=== PATIENT | male | born 1985 | race Caucasian/White ===

== ENCOUNTER 2017-09-01 09:46 | Emergency (ER) | payer SELFPAY ==
[2017-09-01] MEDS ORDERED: Ibuprofen 800 MG TAB ONE (10:51)
== END 2017-09-01 10:55 | disposition home or self-care (01) ==
LOC: ERS 09:46
DX: J11.1 Influenza due to unidentified influenza virus with other respiratory manifestations (principal); F32.9 Major depressive disorder, single episode, unspecified; Z71.6 Tobacco abuse counseling; F17.210 Nicotine dependence, cigarettes, uncomplicated
CPT/HCPCS: 99406

== ENCOUNTER 2017-10-14 10:02 | Outpatient (CLI) | payer OTHER | END 2017-10-14 10:03 | disposition home or self-care (01) | LOC: CTENTCT 10:02 | PROVIDERS: ATTEND Otolaryngology Plastic Surgery within the Head & Neck | DX: J32.8 Other chronic sinusitis (principal) | CPT/HCPCS: 70486 ==

== ENCOUNTER 2018-09-21 12:32 | Emergency (ER) | payer OTHER ==
[2018-09-21 13:11] LABS: #Basophils 0.1 thou/uL (0.0-0.2); #Eosinphils 0.1 thou/uL (0.0-0.7); #Lymphocytes 1.7 thou/uL (1.20-3.40); #Neutrophils 10.6 thou/uL (1.40-6.50); %Basophils 0.5 % (0.0-1.0); %Eosinophils 0.8 % (0.0-10.0); %Lymphocytes 11.9 % (21.0-51.0); %Monocytes 13.7 % (0.0-10.0); %Neutrophils 73.1 % (42.0-75.0); Hemoglobin 17.5 g/dL (14.0-18.0); Mean Corpuscular HGB CONC 35.2 g/dL (32.0-36.0); Mean Corpuscular Hemoglobin 31.2 pg (27.0-31.0); Mean Corpuscular Volume 88.5 fL (78.0-98.0); Mean Platelet Volume 6.8 fL (7.4-10.4); Platelet Count 231 thou/uL (130-400); RBC Distribution Width 11.7 % (11.5-14.5); Red Blood Cell (RBC) Count 5.61 mill/uL (4.70-6.10); White Blood Cell (WBC) Count 14.5 thou/uL (4.8-10.8)
[2018-09-21 13:37] LABS: ALT (SGPT) 105 U/L (8-55); AST (SGOT) 28 U/L (5-34); Albumin 4.5 g/dL (3.5-5.0); Alkaline Phosphatase 83 U/L (40-150); Anion Gap 13 mmol/L (10-20); BUN (Urea Nitrogen) 17 mg/dL (8.9-20.6); Bilirubin, Total 3.1 mg/dL (0.2-1.2); CK (CPK) 65 U/L (30-200); Calc. Creatinine Clearance 0 mL/min (70-130); Calcium 9.7 mg/dL (7.8-10.44); Carbon Dioxide 24 mmol/L (22-29); Chloride 100 mmol/L (98-107); Estimated GFR-MDRD 61; Globulin 3.4 g/dL (2.4-3.5); Glucose 100 mg/dL (70-105); Lipase 19 U/L (8-78); Potassium 3.4 mmol/L (3.5-5.1); Protein, Total 7.9 g/dL (6.0-8.3); Sodium 134 mmol/L (136-145)
[2018-09-21 13:58] LABS: Bilirubin Negative (Negative); Blood, Urine Large (Negative); Clarity CLOUDY (Clear); Glucose, Urine (Dipstick) 250 mg/dL (Negative); Leukocyte Large (Negative); Nitrite Positive (Negative); Protein, Urine (Dipstick) 30 mg/dL (Neg-Trace); Specific Gravity, Urine 1.024 (1.002-1.036)
[2018-09-21 14:00] LABS: Bacteria/HPF 4+ HPF (None Seen); Hyaline Casts/LPF 0-3 HYALINE CAST LPF (0-3 Hyaline); Pathc Cast-AUWi Flag 0.72 (0-2.49); RBC/HPF 21-50 HPF (0-3); Squamous Epithelial None Seen HPF (0-3)
--- NOTE | 2018-09-21 14:08 | RAD ---
PA CHEST: HISTORY: Chest pain. FINDINGS: The lung mix are clear. The heart and mediastinum appear normal. The vasculature is normal. IMPRESSION: No acute findings. POS: [facility]
[2018-09-21] MEDS ORDERED: Acetaminophen 500 MG TAB ONE (14:42)
[2018-09-21] MEDS ORDERED: cefTRIAXone\\ROCEPHIN 1 GM VIAL ONE (14:42)
[2018-09-21] MEDS ORDERED: Sulfameth/Trimethoprim DS 800-160mg TAB ONE (14:42)
== END 2018-09-21 15:56 | disposition home or self-care (01) ==
LOC: ERS 12:32
DX: N12 Tubulo-interstitial nephritis, not specified as acute or chronic (principal); F32.9 Major depressive disorder, single episode, unspecified; F17.210 Nicotine dependence, cigarettes, uncomplicated
CPT/HCPCS: 36415; 71045; 80053; 81003; 81015; 82550; 83690; 84484; 85025; 93005; 96365; J0696

== ENCOUNTER 2019-04-13 07:57 | Outpatient (CLI) | payer OTHER ==
--- NOTE | 2019-04-13 08:21 | ULT ---
Sonogram right upper quadrant HISTORY: Abnormal liver function tests. FINDINGS: Gallbladder has a normal appearance. Common duct is 0.3 cm. Liver is diffusely echogenic without focal mass or intrahepatic biliary dilatation. No free fluid. IMPRESSION: No evidence of gallstones or biliary obstruction. Hepatic steatosis.
== END 2019-04-13 07:58 | disposition home or self-care (01) ==
LOC: BICULT 07:57
PROVIDERS: ATTEND Family Medicine
DX: R74.8 Abnormal levels of other serum enzymes (principal); K76.0 Fatty (change of) liver, not elsewhere classified
CPT/HCPCS: 76705

== ENCOUNTER 2019-07-05 07:18 | Day surgery (SDC) | payer OTHER ==
[2019-07-04 14:51] VITALS: BMI 28.3
[2019-07-05] MEDS ORDERED: Midazolam HCl 2 mg/2 ml Vial ONE (08:07)
[2019-07-05] MEDS ORDERED: Oxymetazoline HCl 0.05% ( 15 ML ) ONE (08:07)
[2019-07-05] MEDS ORDERED: Fentanyl 100 MCG/2 ML VIAL ONE ×3 (09:44→12:42)
[2019-07-05] MEDS ORDERED: Lidocaine 1% w/Epinephrine 1:100K 20 ML VIAL ONE (09:47)
[2019-07-05] MEDS ORDERED: Ferric Subsulfate (ASTRINGYN) 8 ML VIAL ONE (09:47)
[2019-07-05] MEDS ORDERED: hydrALAZINE 20 MG/ML VIAL ONE (12:18)
[2019-07-05] MEDS ORDERED: Labetalol HCl 100 MG/20 ML VIAL ONE (12:47)
[2019-07-05] MEDS ORDERED: Morphine 2 MG/ML SYRINGE ONE (13:44)
[2019-07-05] MEDS ORDERED: Hydrocodone-Acetamin 15 ML UDCUP ONE (14:19)
[2019-07-05] MEDS ORDERED: PROPOFOL 200 MG/20 ML VIAL ONE (16:06)
[2019-07-05] MEDS ORDERED: Ondansetron PF 4 MG/2 ML Vial ONE (16:06)
[2019-07-05] MEDS ORDERED: Glycopyrrolate 0.2 MG/ML 5 ML SYRINGE ONE (16:06)
[2019-07-05] MEDS ORDERED: Lidocaine 1% PF 5 ML VIAL ONE (16:06)
[2019-07-05] MEDS ORDERED: Dexamethasone 20 MG/5 ML VIAL ONE (16:06)
[2019-07-05] MEDS ORDERED: Rocuronium Bromide 10 MG/ML (10ML VIAL) ONE (16:06)
--- NOTE | 2019-07-11 09:46 | OP ---
DATE OF PROCEDURE: 07/05/2019 PREOPERATIVE DIAGNOSES: 1. Chronic rhinosinusitis. 2. Nasal septal deviation. 3. Bilateral inferior turbinate hypertrophy. 4. Nasal polyposis. 5. Chronic adenotonsillitis. 6. Adenotonsillar hypertrophy. POSTOPERATIVE DIAGNOSES: 1. Chronic rhinosinusitis. 2. Nasal septal deviation. 3. Bilateral inferior turbinate hypertrophy. 4. Nasal polyposis. 5. Chronic adenotonsillitis. 6. Adenotonsillar hypertrophy. PROCEDURES PERFORMED: 1. Bilateral endoscopic sinus surgery, total ethmoidectomies. 2. Bilateral endoscopic sinus surgery, maxillary antrostomies. 3. Bilateral endoscopic sinus surgery, frontal sinusotomies. 4. Bilateral endoscopic sinus surgery, sphenoidotomies. 5. Nasal septoplasty. 6. Bilateral inferior turbinate submucosal resection. 7. Tonsillectomy and adenoidectomy. ESTIMATED BLOOD LOSS: 50 mL. COMPLICATIONS: None. ANESTHESIA: GETA. PROCEDURE IN DETAIL: TONSILLECTOMY AND ADENOIDECTOMY: After consent was obtained, the patient was identified, brought to the operating room, and placed on the operating table in the supine position. General endotracheal anesthesia and intravenous access were obtained and we proceeded with positioning the patient for oropharyngeal surgery. Oropharyngeal exposure was obtained with a Marry-Alexy mouth gag after a head drape was placed and secured with a towel clip. The Marry-Alxey mouth gag was then suspended from the Naranjo tray and palatal elevation was achieved with a red rubber catheter. The right tonsil was addressed first. We used a curved Allis to grasp the tonsil and retract it medially as an anterior pillar incision was made. The retrotonsillar fascial plane was then established and blunt dissection was performed with the suction cautery. Blood vessels were anticipated, identified, and cauterized as they were encountered. Ultimately, dissection was carried to the posterior tonsillar pillar mucosa which was incised hemostatically, as well as the base of tongue connection. The tonsil was then passed off as a specimen and bleeding points within the tonsillar bed were cauterized under direct visualization. We subsequently turned our attention to the contralateral side, where using a similar technique, a near identical procedure was performed. Again, the tonsil was grasped and retracted medially with a curved Allis. The retrotonsillar fascial plane was established and while the anterior pillar was retracted medially. The hemostatic blunt dissection of the tonsil with a suction cautery was performed with blood vessels anticipated, identified, and cauterized as they were encountered. Again, dissection continued to the base of tongue and posterior tonsillar pillar mucosa which was incised in a hemostatic fashion. The tonsillar beds were then carefully inspected and bleeding points were identified and cauterized with a suction cautery. After this portion of the procedure, hemostasis was completely obtained. Under direct mirror visualization, we visualized the adenoid pad. Under direct mirror visualization, we removed the bulk of the adenoid tissue with the adenoid curette. We then packed the nasopharynx for an appropriate period of time with [id number] tonsillar sponges. After a period of observation, we removed the pack. Under indirect mirror visualization, we obtained hemostasis and vaporization of residual adenoid tissue with electrocautery. The patient's oral cavity was copiously irrigated with iced saline and subsequently suctioned. After completion of the procedure, the nasal cavity and oropharynx were irrigated and suctioned as were the gastric contents. The patient was then awakened and transferred to the recovery room where the patient remained in stable condition prior to discharge to Day Stay. Note was following this please dictate my standard nasal septoplasty and bilateral inferior turbinate submucosal resection note following this please dictate my standard bilateral endoscopic sinus surgery, total ethmoidectomy and maxillary antrostomy note. Following this, the 0-degree endoscope was advanced through the previous ethmoidectomies and the superior turbinate was identified. The attachment of the superior turbinates to the posterior nasal wall was used as a landmark in a puncture into the sphenoid sinus was made just medial and inferior to this area with a Jameson tip suction. Following this, the 0-degree microdebrider was then inserted into the sphenoid ostium for the sphenoidotomy and was widened medially and inferiorly. This was performed bilaterally. Following this, a 45-degree endoscope and the 40-degree microdebrider blade were used to further open the anterior ethmoidal cells and frontal recess cells. Following this, the frontal sinus ostia was identified and was widened bilaterally using the curved microdebrider. Following this, the nasal cavity was irrigated. Propel nasal steroid stents were placed in the frontal sinus ostia and the maxillary sinus ostia bilaterally nasal pore packing was placed into the middle meatus. Aj splints were placed and secured. The patient tolerated procedure well. NASAL SEPTOPLASTY AND BILATERAL INFERIOR TURBINATE SUBMUCOSAL RESECTION: The patient was taken to the operating room and GETA was obtained by the anesthesia staff. Afrin pledgets were then placed into the nasal cavity bilaterally. The patient was placed into the beach chair positon and was prepped and draped for standard nasal surgical procedures. Following this, the Afrin pledgets were removed and 1% lidocaine with 1:100,000 epinephrine was injected via a 27 gauge needle into the nasal septum, the inferior turbinate and the middle turbinate bilaterally. Following this, a Greenbriar incision was made on the left nasal septum and mucoperichondrial flaps were elevated. A strong 2 cm caudal and dorsal cartilage strut was left intact as the deviated portions of the nasal cartilage and bone was removed. A 4-0 gut stitch was used to reapproximate the nasal mucoperichondrial flaps as well as close the Anuel incision. Following this, the submucosal microdebrider was used to puncture and submucosally resect the anterior- inferior portions of the hypertrophic inferior turbinates. The inferior turbinates were laterally outfractured with a Eudora elevator. BILATERAL ENDOSCOPIC SINUS SURGERY: BILATERAL TOTAL ETHMOIDECTOMIES, AND MAXILLARY ANTROSTOMIES: Following this, 1% lidocaine with 1:100,000 epinephrine were injected into the middle turbinates and lateral nasal wall bilaterally. Following this, the 0-degree endoscope was used to visualize the middle turbinate and the middle turbinate was medially fractured using a Eudora elevator. Following this, the uncinate process was identified and was examined. The uncinate process was noted to be inflamed and laterally displaced bilaterally. Following this, a ball-ended probe was used to anteriorly fracture the uncinate process bilaterally. Following this, the 0-degree microdebrider and the up-biting Blakesley forceps were used to remove the uncinate process bilaterally. Following this, the natural maxillary sinus ostia was identified with the 0-degree endoscope and the ball-ended probe. The natural maxillary ostia was then widened using a 40-degree microdebrider and the straight Blakesley forceps bilaterally. Following this, the ethmoidal bulla was identified bilaterally. A 0-degree microdebrider was used to puncture the ethmoidal bulla on its medial and inferior aspect bilaterally. Following this, the 0-degree microdebrider and the up-biting Blakesley forceps were used to remove the ethmoidal bulla. Following this, the grand lamella was identified posterior to this area and was punctured using the 0-degree microdebrider bilaterally. Following this, the ethmoidal cells were opened from the posterior to the anterior using the 0-degree microdebrider, the 40-degree microdebrider and the up-biting Blakesley forceps bilaterally. Following this, the 45-degree endoscope and the 40-degree microdebrider blade were used to further remove the anterior ethmoidal cells to the level of the frontal sinus recess bilaterally. Job ID: [id number]
== END 2019-07-05 15:10 | disposition home or self-care (01) ==
LOC: EEVIPCON 07:18 → SDC 07:18
PROVIDERS: ATTEND Otolaryngology Plastic Surgery within the Head & Neck
PROC: 099W8ZZ Drainage of Right Sphenoid Sinus, Via Natural or Artificial Opening Endoscopic (ICD-10-PCS; principal; 2019-07-05)
PROC: 099Q8ZZ Drainage of Right Maxillary Sinus, Via Natural or Artificial Opening Endoscopic (ICD-10-PCS; principal; 2019-07-05)
PROC: 0CTPXZZ Resection of Tonsils, External Approach (ICD-10-PCS; principal; 2019-07-05)
PROC: 099S8ZZ Drainage of Right Frontal Sinus, Via Natural or Artificial Opening Endoscopic (ICD-10-PCS; principal; 2019-07-05)
PROC: 0CTQXZZ Resection of Adenoids, External Approach (ICD-10-PCS; principal; 2019-07-05)
PROC: 09TV8ZZ Resection of Left Ethmoid Sinus, Via Natural or Artificial Opening Endoscopic (ICD-10-PCS; principal; 2019-07-05)
PROC: 099T8ZZ Drainage of Left Frontal Sinus, Via Natural or Artificial Opening Endoscopic (ICD-10-PCS; principal; 2019-07-05)
PROC: 09TU8ZZ Resection of Right Ethmoid Sinus, Via Natural or Artificial Opening Endoscopic (ICD-10-PCS; principal; 2019-07-05)
PROC: 09TL0ZZ Resection of Nasal Turbinate, Open Approach (ICD-10-PCS; principal; 2019-07-05)
PROC: 09SM0ZZ Reposition Nasal Septum, Open Approach (ICD-10-PCS; principal; 2019-07-05)
PROC: 099R8ZZ Drainage of Left Maxillary Sinus, Via Natural or Artificial Opening Endoscopic (ICD-10-PCS; principal; 2019-07-05)
PROC: 099X8ZZ Drainage of Left Sphenoid Sinus, Via Natural or Artificial Opening Endoscopic (ICD-10-PCS; principal; 2019-07-05)
DX: J32.9 Chronic sinusitis, unspecified (principal); J34.2 Deviated nasal septum; J34.3 Hypertrophy of nasal turbinates; J33.9 Nasal polyp, unspecified; J35.03 Chronic tonsillitis and adenoiditis; G89.29 Other chronic pain; F17.210 Nicotine dependence, cigarettes, uncomplicated; G47.33 Obstructive sleep apnea (adult) (pediatric); K13.79 Other lesions of oral mucosa; Z79.899 Other long term (current) drug therapy
CPT/HCPCS: 88304; J0360; J1100; J2001; J2250; J2270; J2405; J2704; J3010

== ENCOUNTER 2020-05-09 11:49 | Outpatient (CLI) | payer OTHER ==
--- NOTE | 2020-05-09 12:29 | RAD ---
LUMBAR SPINE RADIOGRAPHS 6 VIEWS: Date: 05/09/2020 PROVIDED CLINICAL HISTORY: Lumbar radiculopathy. FINDINGS: Six non-rib bearing lumbar-type vertebral bodies are demonstrated. Lumbar alignment appears normal. T here is no evidence for abnormal translational motion with flexion and extension. Utilizing the above nomenclature, bilateral L6 pars defects are suspected on the basis of the oblique views. Vertebral b cata heights and intervertebral disc space heights appear preserved. Pedicles appear intact. SI joints appear unremarkable. IMPRESSION: Bilateral L6 pars defects are suspected without associated listhesis. POS: [facility]
== END 2020-05-09 11:50 | disposition home or self-care (01) ==
LOC: BICRAD 11:49
PROVIDERS: ATTEND Chiropractor
DX: M54.16 Radiculopathy, lumbar region (principal); M54.5 Low back pain; G89.29 Other chronic pain
CPT/HCPCS: 72100

== ENCOUNTER 2020-06-05 10:37 | Outpatient (CLI) | payer OTHER ==
--- NOTE | 2020-06-05 11:26 | MRI ---
MR the lumbar spine without contrast: 06/05/2020 History: Left-sided radiculopathy, pain COMPARISON: Lumbar spine radiographs 05/09/2020 TECHNIQUE: Multiplanar multisequence MR images were obtained of lumbar spine without IV contrast FINDINGS: On the basis of 6 lumbar type vertebral bodies, conus medullaris terminates at theL1 level. Sagittal STIR imaging demonstrates no focal area of osseous marrow edema. T12-L1:Unremarkable L1-2:Unremarkable L2-3:Unremarkable L3-4:Unremarkable L4-5:Unremarkable L5-L6: Tiny central disc protrusion with no associated central canal or neural foraminal stenosis L6-S1: Bilateral pars defects are suspected. There is mild disc space narrowing. Anterolisthesis is n oted measuring in the 7 mm range. No significant central canal stenosis. Mild left neural foraminal stenosis. No significant right neural foraminal. Image retroperitoneal structures demonstrateno acute findings. IMPRESSION: On the basis of 6 lumbar type vertebral bodies, bilateral L6 pars defects are suspected with mild ant erolisthesis at L6 S1 and mild left-sided neural foraminal stenosis.
== END 2020-06-05 10:38 | disposition home or self-care (01) ==
LOC: TBSIIMAG 10:37
PROVIDERS: ATTEND Neurological Surgery
DX: M54.16 Radiculopathy, lumbar region (principal); M43.06 Spondylolysis, lumbar region
CPT/HCPCS: 72148

== ENCOUNTER 2020-06-15 23:05 | Inpatient (IN) | payer OTHER ==
[2020-06-15] MEDS ORDERED: Fentanyl 100 MCG/2 ML VIAL ONE ×2 (23:16→23:50)
[2020-06-15 23:32] LABS: #Basophils 0.1 thou/uL (0.0-0.2); #Eosinphils 0.2 thou/uL (0.0-0.7); #Lymphocytes 1.6 thou/uL (1.20-3.40); #Neutrophils 10.3 thou/uL (1.40-6.50); %Basophils 0.7 % (0.0-1.0); %Eosinophils 1.7 % (0.0-10.0); %Monocytes 7.4 % (0.0-10.0); %Neutrophils 78.3 % (42.0-75.0); Hemoglobin 15.8 g/dL (14.0-18.0); Mean Corpuscular HGB CONC 35.2 g/dL (32.0-36.0); Mean Corpuscular Hemoglobin 31.5 pg (27.0-31.0); Mean Corpuscular Volume 89.4 fL (78.0-98.0); Mean Platelet Volume 6.9 fL (7.4-10.4); Platelet Count 252 thou/uL (130-400); RBC Distribution Width 11.8 % (11.5-14.5); Red Blood Cell (RBC) Count 5.02 mill/uL (4.70-6.10); White Blood Cell (WBC) Count 13.2 thou/uL (4.8-10.8)
[2020-06-15 23:52] LABS: ALT (SGPT) 79 U/L (8-55); AST (SGOT) 37 U/L (5-34); Albumin 4.2 g/dL (3.5-5.0); Alkaline Phosphatase 73 U/L (40-110); Anion Gap 16 mmol/L (10-20); BUN (Urea Nitrogen) 17 mg/dL (8.9-20.6); Bilirubin, Total 1.1 mg/dL (0.2-1.2); Calc. Creatinine Clearance 0 mL/min (70-130); Calcium 8.5 mg/dL (7.8-10.44); Carbon Dioxide 19 mmol/L (22-29); Chloride 104 mmol/L (98-107); Estimated GFR-MDRD 79; Globulin 2.5 g/dL (2.4-3.5); Glucose 82 mg/dL (70-105); Potassium 3.4 mmol/L (3.5-5.1); Protein, Total 6.7 g/dL (6.0-8.3); Sodium 136 mmol/L (136-145)
[2020-06-16] MEDS ORDERED: Promethazine HCl 25 MG/ML VIAL IM PRN ×2 (00:28→12:17)
[2020-06-16] MEDS ORDERED: Dextrose 50% Abboject 50 ML SYRINGE SLOW IVP PRN (00:28)
[2020-06-16] MEDS ORDERED: Dextrose 5% in Water 1,000 ML IV PRN (00:28)
[2020-06-16] MEDS ORDERED: Ondansetron ODT 4 MG TAB PO PRN (00:28)
[2020-06-16] MEDS ORDERED: Ondansetron PF 4 MG/2 ML Vial IVP PRN (00:28)
--- NOTE | 2020-06-16 01:00 | HP ---
Trauma activation, not applicable. HISTORY OF PRESENT ILLNESS: This is a 35-year-old male brought to [facility] ER via EMS status post fall. Per patient, he was walking [facility] after tracking a peoples that he shot while hunting when he stepped in a hole and twisted his leg. Patient had immediate onset of right lower extremity pain and was unable to ambulate. Further evaluation in the emergency room revealed a comminuted tib-fib fracture. Orthopedic Surgery was notified and Trauma Service was asked to admit. Upon my evaluation, the patient is post-conscious sedation for reduction and splinting. The splint is in place. Current pain is a 2/10. Pain relieved with pain medication and worsened with movement. Patient reports he was in his normal state of health prior to his accident. ALLERGIES: NONE. HOME MEDICATIONS: Denies. SURGICAL HISTORY: Sinus surgery. SOCIAL HISTORY: Lives with spouse. He is an enterprise systems administrator. Endorses occasional alcohol use and daily tobacco use, snuff. Patient denies any illicit drug use. FAMILY HISTORY: Significant for father with stroke, CAD, hypertension and mother with hypertension. REVIEW OF SYSTEMS: Remainder of a 10-point review of systems was performed and negative, except as indicated in the HPI. PHYSICAL EXAMINATION: VITAL SIGNS: On evaluation include heart rate 95, blood pressure 139/96, O2 saturation 98% on 2 L nasal cannula, and respiratory rate of 18. Patient is afebrile. GENERAL: Resting in bed. No acute distress. HEENT: Head is normocephalic, atraumatic. Eyes, pupils are PERRL. Extraocular movements are intact. NECK: Supple. Trachea is midline. There is no midline tenderness to palpation. CHEST: Atraumatic. Nontender to palpation. Normal breathing. Symmetric rise. LUNGS: Clear to auscultation bilaterally. CARDIOVASCULAR: Regular rate and rhythm. No obvious murmurs, rubs, or gallops. GI: Abdomen is soft, nontender, and nondistended. Bowel sounds are positive. PELVIS: Stable. BACK EXAM: Within normal limits for patient. MUSCULOSKELETAL: Bilateral upper extremities within normal limits. Left lower extremity within normal limits. Right lower extremity has been splinted and he is neurovascularly intact at the side of his injury. NEUROLOGIC: GCS is 15. No focal deficit is noted. LABORATORY FINDINGS: WBC 13.2, hemoglobin 15.8, hematocrit 44.9, and platelet count 252. Sodium 136, potassium 3.4, chloride 104, carbon dioxide 19, BUN 17, creatinine 1.06, glucose 82, AST 37, and ALT 79. RADIOGRAPHIC FINDINGS: Chest x-ray, pending Radiology read, no acute cardiopulmonary abnormalities. X-ray of the tib-fib pending Radiology read demonstrates a comminuted tib-fib fractures. ASSESSMENT: 1. Status post mechanical fall. 2. Acute traumatic pain. 3. Fracture-dislocation of the tibia and fibula. PLAN: Orthopedic Surgery has been notified and plan for operative intervention in the morning. Patient should be n.p.o. Gentle IV fluid for hydration. Pain management with p.o. and IV medications. Postoperative PT and OT, supportive care. Incentive spirometry while awake. Pharmacological DVT prophylaxis when appropriate. Plan for admission was discussed with patient at bedside and all questions were answered prior to this dictation. Trauma attending has been notified of admission. Of note, the patient's primary care provider is Dr. Chin. Job ID: [id number]
[2020-06-16] MEDS: Lactated Ringer's 1,000 ML IV SCH ×3 (01:37→23:00)
[2020-06-16] MEDS: Morphine 2 MG/ML VIAL SLOW IVP PRN ×4 (01:41→22:31)
[2020-06-16] MEDS: Acetaminophen 500 MG TAB PO SCH ×4 (01:59→20:33)
[2020-06-16] MEDS: traMADol HCl 50 MG TAB PO SCH ×4 (01:59→20:34)
[2020-06-16] MEDS: Ketorolac Tromethamine 30 MG/ML VIAL IVP SCH ×4 (02:01→20:30)
[2020-06-16 03:14] VITALS: BMI 27.6
[2020-06-16] MEDS ORDERED: Ketorolac Tromethamine 30 MG/ML VIAL IVP SCH (06:00)
[2020-06-16] MEDS ORDERED: traMADol HCl 50 MG TAB PO SCH (06:00)
[2020-06-16] MEDS ORDERED: Acetaminophen 500 MG TAB PO SCH (06:00)
--- NOTE | 2020-06-16 08:07 | RAD ---
RIGHT TIBIA FIBULA: FINDINGS: Comminuted displaced fractures involving the distal diaphysis of both tibia and fibula. Both fractur es are predominantly obliquely oriented. Both show mild comminution. Both fractures show posterior displacement of the distal fragments. IMPRESSION: Displaced fractures distal diaphysis right tibia and fibula. POS: [facility]
--- NOTE | 2020-06-16 08:08 | RAD ---
PORTABLE CHEST: HISTORY: Injury. Preop. FINDINGS: Lung mix clear. Heart and mediastinum appear normal. IMPRESSION: Negative chest. POS: [facility]
[2020-06-16] MEDS ORDERED: CEFAZOLIN 2 GM in Premix Bag 1 BAG IVPB SCH (08:15)
[2020-06-16] MEDS ORDERED: Ondansetron PF 4 MG/2 ML Vial ONE (10:00)
[2020-06-16] MEDS ORDERED: Dexamethasone 20 MG/5 ML VIAL ONE (10:00)
[2020-06-16] MEDS ORDERED: Glycopyrrolate 0.2 MG/ML 5 ML SYRINGE ONE (10:00)
[2020-06-16] MEDS ORDERED: Ketorolac Tromethamine 30 MG/ML VIAL ONE (10:00)
[2020-06-16] MEDS ORDERED: Rocuronium Bromide 10 MG/ML (10ML VIAL) ONE (10:00)
[2020-06-16] MEDS ORDERED: diphenhydrAMINE 50 MG/ML VIAL ONE (10:00)
[2020-06-16] MEDS ORDERED: PROPOFOL 200 MG/20 ML VIAL ONE (10:00)
[2020-06-16] MEDS ORDERED: Fentanyl 100 MCG/2 ML VIAL ONE (10:01)
[2020-06-16] MEDS ORDERED: Midazolam HCl 2 mg/2 ml Vial ONE (10:01)
[2020-06-16] MEDS: Famotidine 20 MG TAB PO SCH ×2 (10:03→20:34)
[2020-06-16] MEDS: Senokot S 8.6-50 MG TAB PO SCH ×2 (10:03→20:37)
[2020-06-16] MEDS: Polyethylene Glycol 3350 17 GM Packet PO SCH (10:03)
--- NOTE | 2020-06-16 10:24 | CON ---
DATE OF CONSULTATION: Dictated by Ghanshyam Gastelum PA-C, as a scribe for Dr. Gatito Sampson. HISTORY OF PRESENT ILLNESS: We were asked by Trauma in the ER to see the patient. The patient was deer hunting, got a peoples, he was going to track the blood trail, slipped off a 1-1/2 foot ledge, twisting his leg and breaking his right tibia. He had significant pain, was not able to continue hunting. His friends brought him to the ER and was found after x-rays to have a tibial fracture. No other injuries. Right now, he is currently resting in room #3308. He does have a splint on, but his leg had not been straightened by the ER. He has no numbness or tingling in his foot fortunately and has good pulses. PAST MEDICAL HISTORY: He has had some sinus issues. FAMILY HISTORY: Positive for cardiac issues. He was actually scheduled to undergo a stress test tomorrow. ALLERGIES: NONE. MEDICATIONS: None. PAST SURGICAL HISTORY: Sinus surgery. SOCIAL HISTORY: Lives with girlfriend. Has rare, occasional alcohol use. Does use tobacco about a pack a day. No drug use. REVIEW OF SYSTEMS: Right lower extremity pain, currently splinted, but his lower extremity is outward rotated, but no numbness or tingling. Rest of discussed review of systems is negative. PHYSICAL EXAMINATION: GENERAL: Well-nourished male, resting in the bed in room #3308, in no acute distress. Speech clear. Affect pleasant. Answered questions appropriately. He is alert and oriented x3. HEENT: Scalp atraumatic. Face symmetric. Tongue midline. NECK: Supple. Trachea midline. EXTREMITIES: Upper extremities, equal size, shape, symmetry. Normal bulk and tone. Strengths, movements, sensations, pulses are all intact. He has an IV unfortunately in the left antecubital. I asked the patient if he would like that moved because he keeps bending his arm and the IV monitor goes off and he is okay with it staying. Respirations 16, in no acute distress. PELVIS: No pain with rocking lower extremities. Left lower extremity normal exam. Right lower extremity is straight until you get to the knee and then his tibia is outward rotated. Fortunately, he has no numbness or tingling due to the outward rotation. He is able to wiggle his toes bilaterally. DP and PT pulses are intact equally. PT pulse on the left is palpable. ASSESSMENT: Fall with ensuing right tibial fracture. PLAN: I spoke with the patient. Once we get him in the OR, we will get him prepped, we will get the leg straightened out, and insert a tibial nail. The procedure risks, benefits, complications have all been discussed and he is amenable to go forth with surgery. His questions and concerns have been addressed. He has been cleared by Medical Trauma Service. Job ID: [id number] [facility]
--- NOTE | 2020-06-16 11:45 | PRG ---
DATE OF SERVICE: 06/16/2020 SUBJECTIVE: The patient remains on the surgical floor, resting comfortably in no acute distress. The patient arouses easily. The patient reports the pain is controlled unless he moves. The patient had no overnight events. The patient remains n.p.o. after midnight with maintenance IV fluids. OBJECTIVE: VITAL SIGNS: Temperature 97.7, pulse 64, respirations 16, blood pressure 137/81, and SpO2 of 97% on room air. GENERAL: young male, resting comfortably in no acute distress. HEENT: Head is atraumatic, normocephalic. Mucous membranes moist. RESPIRATORY: Equal chest rise and fall, no respiratory distress. CARDIAC: Regular rate, regular rhythm. EXTREMITIES: Moves all extremities, neurovascularly intact x4, right lower extremity in a splint. NEUROLOGIC: GCS 15. No focal deficits. LABORATORY DATA: No new labs to evaluate. IMPRESSION: 1. Status post mechanical fall. 2. Acute traumatic pain. 3. Fracture dislocation of the right tibia and fibula. PLAN: Continue n.p.o. and maintenance IV fluids. Orthopedic Surgery plans to take the patient to the OR today for repair. Pain control and supportive care. PT and OT to evaluate and treat postop. Regular diet postop. The plan was discussed with the patient who agrees. Job ID: [id number]
[2020-06-16] MEDS ORDERED: PROPOFOL 0 ML ONE (12:14)
[2020-06-16] MEDS ORDERED: PACU-Morphine 4MG/ML VIAL SLOW IVP PRN (12:17)
[2020-06-16] MEDS ORDERED: Ondansetron HCl/PF 4 MG/2 ML Vial IVP PRN (12:17)
[2020-06-16] MEDS ORDERED: HYDROmorphone 2 MG/ML VIAL SLOW IVP PRN (12:17)
[2020-06-16] MEDS ORDERED: Promethazine HCl 25 MG/ML VIAL SLOW IVP PRN (12:17)
--- NOTE | 2020-06-16 13:24 | RAD ---
RIGHT TIBIA FIBULA 2 VIEWS: HISTORY: Intraoperative films. FINDINGS: This shows intramedullary rusty placement stabilizing a distal tibial fracture. IMPRESSION: Intramedullary rusty placement. POS: [facility]
[2020-06-16] MEDS: CEFAZOLIN 2 GM in Premix Bag 1 BAG IVPB SCH ×2 (14:04→20:41)
--- NOTE | 2020-06-16 18:32 | OP ---
DATE OF PROCEDURE: 06/16/2020 PROCEDURE PERFORMED: Right tibia intramedullary nail. PREOPERATIVE DIAGNOSIS: Right tibia and fibular fracture. POSTOPERATIVE DIAGNOSIS: Right tibia and fibular fracture. COMPLICATIONS: None. ESTIMATED BLOOD LOSS: 100 mL. QUALITY REVIEWER: Ghanshyam Gastelum. IMPLANTS: Synthes 375 mm x 10 mm tibial nail with Crosslock screws. INDICATIONS: Gatito is a 35-year-old male, who fractured his right tibia and fibula. He has been indicated for intramedullary nail fixation to restore anatomic alignment and promote healing. Risks have been reviewed with the patient and he wants to proceed with surgery. DESCRIPTION OF PROCEDURE: Gatito was identified in the preoperative holding area. His correct extremity was marked. He was carried to the operating room. He was positioned supine. General anesthesia was induced. A multidisciplinary time-out was performed. The right lower extremity was prepped and draped in sterile fashion. We began the procedure with a small incision over the knee. We dissected down through the subcutaneous tissues to the medial parapatellar tendon. We made a small arthrotomy. We then bluntly palpated the proximal tibial plateau. Next, we inserted a guide pin using intraoperative x-ray. We overdrilled the guide pin. We then placed our ball-tipped guidewire from proximal to distal through the tibia and across the fracture site, it was seated distally. At this point, we measured the guide length. We then over-reamed the guide 10 from an 8.5 reamer to a size 11 reamer. We then inserted a 375 mm tibial nail, which was size 10. This was seated appropriately using intraoperative x- ray. We checked that we had appropriate alignment and reduction. We then placed 2 proximal Crosslock screws followed by two distal Crosslock screws. We thoroughly irrigated all wounds and copiously lavaged. We then placed a sterile dressing. The patient was taken to the recovery room in good condition. The social media assistant participated in patient positioning, prepping and drapping the limb. Surgical approach and exposure was provided by the social media assistant by use of retractors. The social media assistant helped in reduction of the bone with traction and other maneuvers. The social media assistant also was involved in closing of the wound and dressing placement. Job ID: [id number] [facility]
[2020-06-17] MEDS: Ketorolac Tromethamine 30 MG/ML VIAL IVP SCH (01:57)
[2020-06-17] MEDS: Acetaminophen 500 MG TAB PO SCH ×3 (01:58→15:00)
[2020-06-17] MEDS: traMADol HCl 50 MG TAB PO SCH ×3 (01:58→15:00)
[2020-06-17] MEDS: Morphine 2 MG/ML VIAL SLOW IVP PRN (03:39)
[2020-06-17 05:11] LABS: Hemoglobin 12.4 g/dL (14.0-18.0); Mean Corpuscular HGB CONC 29.6 g/dL (32.0-36.0); Mean Corpuscular Hemoglobin 26.9 pg (27.0-31.0); Mean Corpuscular Volume 90.7 fL (78.0-98.0); Mean Platelet Volume 7.5 fL (7.4-10.4); Platelet Count 256 thou/uL (130-400); RBC Distribution Width 11.6 % (11.5-14.5); Red Blood Cell (RBC) Count 4.63 mill/uL (4.70-6.10); White Blood Cell (WBC) Count 13.2 thou/uL (4.8-10.8)
[2020-06-17 05:28] LABS: Anion Gap 10 mmol/L (10-20); BUN (Urea Nitrogen) 15 mg/dL (8.9-20.6); Calc. Creatinine Clearance 137 mL/min (70-130); Calcium 8.6 mg/dL (7.8-10.44); Carbon Dioxide 27 mmol/L (22-29); Chloride 103 mmol/L (98-107); Estimated GFR-MDRD 85; Glucose 134 mg/dL (70-105); Magnesium 2.1 mg/dL (1.6-2.6); Phosphorus 3.5 mg/dL (2.3-4.7); Potassium 4.1 mmol/L (3.5-5.1); Sodium 136 mmol/L (136-145)
[2020-06-17] MEDS: Lactated Ringer's 1,000 ML IV SCH (05:51)
[2020-06-17] MEDS ORDERED: Cyclobenzaprine 10 MG TAB PO PRN (07:19)
[2020-06-17] MEDS ORDERED: PHOS-NAK 1 PKT PACK PO SCH (07:30)
[2020-06-17] MEDS: Famotidine 20 MG TAB PO SCH (08:24)
[2020-06-17] MEDS: Senokot S 8.6-50 MG TAB PO SCH (08:24)
[2020-06-17] MEDS: Polyethylene Glycol 3350 17 GM Packet PO SCH ×2 (08:24→08:34)
--- NOTE | 2020-06-17 13:36 | DIS ---
DATE OF ADMISSION: 06/16/2020 DATE OF DISCHARGE: 06/17/2020 ADMISSION DIAGNOSES: Ground level fall and right tib-fib fracture. DISCHARGE DIAGNOSES: Ground level fall and right tib-fib fracture. CONSULTING PHYSICIAN: Dr. Sampson of Orthopedic Surgery. PROCEDURES: The patient went to the OR on June 16, 2020, and had an IM nail to the right tib-fib. HOSPITAL COURSE: The patient is a 35-year-old male, who presented to the emergency department after a ground level fall. The patient was hunting and he stepped into a hole, subsequently causing him to fall. He had a right tib-fib fracture. He was admitted to the Trauma Service and went to the OR the same day of arrival to receive IM nail of the right tib-fib. Postoperatively, he worked with physical and occupational therapy and was deemed safe to be discharged home with crutches. DISCHARGE DISPOSITION: Home. DISCHARGE CONDITION: Satisfactory. PHYSICAL EXAMINATION: VITAL SIGNS: Temperature 98, pulse 63, respirations 16, oxygen saturation 98% on room air, and blood pressure 139/91. GENERAL: Well-appearing, middle-aged male, sitting up in bed with no signs of acute distress. PULMONARY: Equal chest rise and fall. Clear breath sounds bilaterally. No signs of acute respiratory distress. CARDIAC: Regular rate and rhythm. NEUROLOGIC: GCS is 15. DISCHARGE INSTRUCTIONS: The patient will be discharged home. Activity as tolerated. Walking boot and strict toe-touch weightbearing to the right lower extremity. Regular diet. Crutches will be provided. DISCHARGE MEDICATIONS: Include: 1. Tylenol. 2. Flexeril. 3. Gabapentin. 4. Ibuprofen. 5. MiraLAX. 6. Tramadol. 7. Aspirin 81 mg b.i.d. FOLLOWUP APPOINTMENTS: The patient is to follow up in clinic with Dr. Sampson in 10 days. No followup is needed in Trauma Clinic with Dr. Chowdhury. This is a summary of the patient's hospitalization. For full details, please see his medical record in its entirety. Dr. Chowdhury and myself evaluated the patient on the day of discharge. [place] Prescription Monitoring Program was accessed and there were no active narcotics or concerning sedating medications on his record. He has no refills there either. He was discharged home on the pain regimen that was deemed safe and appropriate for his injuries while he was inpatient. Job ID: [id number]
[2020-06-17] MEDS ORDERED: Ibuprofen 600 MG TAB PO SCH (14:00)
[2020-06-17 14:26] VITALS: BP 130/82; TEMP 97.9
[2020-06-17] MEDS ORDERED: Gabapentin 300 MG CAP PO SCH (15:00)
== END 2020-06-17 14:28 | disposition home or self-care (01) | DRG 494 ==
LOC: ERS 23:05 → SURG A 06-16 00:32
PROVIDERS: ADMIT Orthopaedic Surgery; ATTEND Orthopaedic Surgery
PROC: 0QHG36Z Insertion of Intramedullary Internal Fixation Device into Right Tibia, Percutaneous Approach (ICD-10-PCS; principal; 2020-06-16)
DX: S82.391A Other fracture of lower end of right tibia, initial encounter for closed fracture (principal); S82.831A Other fracture of upper and lower end of right fibula, initial encounter for closed fracture; W18.30XA Fall on same level, unspecified, initial encounter; F32.9 Major depressive disorder, single episode, unspecified; F17.210 Nicotine dependence, cigarettes, uncomplicated
CPT/HCPCS: 29505; 36415; 71045; 76000; 80048; 80053; 83735; 84100; 85025; 85027; 93005; 96374; 96376; C1713; C1769; G0390; J0690; J1100; J1200; J1885; J2250; J2270; J2405; J2704; J3010; J7030

== ENCOUNTER 2020-06-24 10:48 | Outpatient (CLI) | payer OTHER ==
--- NOTE | 2020-06-24 11:14 | ULT ---
EXAM: Right lower extremity venous Doppler US HISTORY: Right lower extremity pain,, edema, postsurgical FINDINGS: Grayscale, color-flow, Doppler evaluation, spectral analysis of the right lower extremity venous stru ctures is performed with 2-D imaging. The right common femoral, superficial femoral, popliteal, posterior tibial, proximal greater saphenous and profunda femoral veins are imaged. There is normal luminal compressibility, flow, and augmentation the visualized deep venous structures of the right lower extremity. IMPRESSION: No evidence of a deep vein thrombosis in the right lower extremity.
== END 2020-06-24 10:49 | disposition home or self-care (01) ==
LOC: BICULT 10:48
PROVIDERS: ATTEND Family Medicine
DX: S82.201A Unspecified fracture of shaft of right tibia, initial encounter for closed fracture (principal); S82.401A Unspecified fracture of shaft of right fibula, initial encounter for closed fracture; M79.604 Pain in right leg

== ENCOUNTER 2020-06-26 05:53 | Emergency (ER) | payer OTHER ==
[2020-06-26 06:56] LABS: #Eosinphils 0.3 thou/uL (0.0-0.7); #Lymphocytes 1.6 thou/uL (1.20-3.40); #Monocytes 1.4 thou/uL (0.11-0.59); #Neutrophils 6.3 thou/uL (1.40-6.50); %Basophils 0.5 % (0.0-1.0); %Eosinophils 2.9 % (0.0-10.0); %Lymphocytes 16.3 % (21.0-51.0); %Monocytes 14.8 % (0.0-10.0); %Neutrophils 65.5 % (42.0-75.0); Hemoglobin 13.9 g/dL (14.0-18.0); Mean Corpuscular HGB CONC 34.1 g/dL (32.0-36.0); Mean Corpuscular Hemoglobin 31.1 pg (27.0-31.0); Mean Corpuscular Volume 91.3 fL (78.0-98.0); Mean Platelet Volume 6.4 fL (7.4-10.4); Platelet Count 313 thou/uL (130-400); RBC Distribution Width 12.1 % (11.5-14.5); Red Blood Cell (RBC) Count 4.47 mill/uL (4.70-6.10); White Blood Cell (WBC) Count 9.6 thou/uL (4.8-10.8)
[2020-06-26 07:16] LABS: CRP (Inflammatory) 1.79 mg/dL (= or < 0.5)
[2020-06-26 07:20] LABS: ALT (SGPT) 46 U/L (8-55); AST (SGOT) 22 U/L (5-34); Albumin 3.9 g/dL (3.5-5.0); Alkaline Phosphatase 96 U/L (40-110); Anion Gap 9 mmol/L (10-20); BUN (Urea Nitrogen) 17 mg/dL (8.9-20.6); Bilirubin, Total 0.9 mg/dL (0.2-1.2); Calc. Creatinine Clearance 0 mL/min (70-130); Calcium 8.9 mg/dL (7.8-10.44); Carbon Dioxide 27 mmol/L (22-29); Chloride 104 mmol/L (98-107); Estimated GFR-MDRD 87; Glucose 120 mg/dL (70-105); Potassium 3.6 mmol/L (3.5-5.1); Protein, Total 6.9 g/dL (6.0-8.3); Sodium 136 mmol/L (136-145)
[2020-06-26] MEDS ORDERED: Morphine 4 MG/ML VIAL ONE (07:27)
--- NOTE | 2020-06-26 07:31 | RAD ---
Frontal and lateral imaging of the right tibia/fibula: 06/26/2020 COMPARISON: 06/15/2020 HISTORY: Pain, prior surgery FINDINGS: There are cutaneous jeremy associated with the distal and proximal aspect of the imaged ri t lower extremity medially. There is an intramedullary rusty within the right tibia with 2 proximal and 2 distal interlocking screws treating an obliquely oriented distal right tibial shaft fracture. M ultifocal obliquely oriented fracture of the mid/distal shaft right fibula noted. Anatomic alignment at the fracture sites noted. IMPRESSION: Fractures of the right tibia and fibula status post ORIF as above.
[2020-06-26] MEDS ORDERED: Ondansetron PF 4 MG/2 ML Vial ONE (07:32)
[2020-06-26] MEDS ORDERED: Ketorolac Tromethamine 30 MG/ML VIAL ONE (08:54)
== END 2020-06-26 09:10 | disposition home or self-care (01) ==
LOC: ERS 05:53
DX: M79.661 Pain in right lower leg (principal); F32.9 Major depressive disorder, single episode, unspecified; F17.210 Nicotine dependence, cigarettes, uncomplicated; Z79.899 Other long term (current) drug therapy
CPT/HCPCS: 80053; 82550; 85025; 85652; 86140; 96374; 96375; J1885; J2270; J2405

== ENCOUNTER 2020-07-31 10:17 | Outpatient (CLI) | payer OTHER ==
--- NOTE | 2020-07-31 12:27 | MRI ---
MRI RIGHT KNEE: Date: 07/31/2020 PROVIDED CLINICAL HISTORY: Right knee pain. FINDINGS: The anterior cruciate ligament, posterior cruciate ligament, medial collateral ligament, and lateral collateral ligamentous complex demonstrate an intact MR appearance, as does the extensor mechanism. The medial and lateral menisci demonstrate no evidence for tear. No focal articular cartilage defect is apparent. There is a moderate knee joint effusion. Regional marrow and muscular signal unaffected by metallic susceptibility artifact appear normal. IMPRESSION: Moderate knee joint effusion without evidence for internal derangement. POS: AH
== END 2020-07-31 10:18 | disposition home or self-care (01) ==
LOC: TBSIIMAG 10:17
PROVIDERS: ATTEND Orthopaedic Surgery
DX: S82.241D Displaced spiral fracture of shaft of right tibia, subsequent encounter for closed fracture with routine healing (principal); M25.461 Effusion, right knee